=== PATIENT | male | born 1960 | race Caucasian/White ===

== ENCOUNTER 2022-02-24 12:15 | Day surgery (SDC) | payer OTHER ==
[2022-02-24] VITALS (13 sets, daily range): BP systolic 126–154; BP diastolic 59–83; PULSE 58–105; TEMP 97.4–98.6
[~2022-02-24] VITALS: Ht 190.5 cm; Wt 82.2 kg
[2022-02-24] MEDS ORDERED: DITROPAN 5MG TAB5 MG PO (13:19)
[2022-02-24] MEDS ORDERED: COLACE 100100 MG/CAP PO (13:19)
[2022-02-24] MEDS ORDERED: K-DUR20 MEQ PO (13:20)
[2022-02-24] MEDS ORDERED: PERCOCET 325 MG1 TA2 PO (13:20)
[2022-02-24] MEDS ORDERED: MIRALAX238G PO (13:20)
[2022-02-24] MEDS ORDERED: PYRIDIUM200 M1 PO (13:21)
[2022-02-24] MEDS ORDERED: TRILIPIX 135MG PO (13:21)
[2022-02-24] MEDS ORDERED: FLOMAX 0.40.4 MG/CAP PO (13:21)
[2022-02-24] MEDS ORDERED: NIASPAN1000 MG PO (13:22)
[2022-02-24] MEDS ORDERED: GLUCOPHAGE850 MG/TAB PO (13:22)
[2022-02-24] MEDS ORDERED: PRINIVIL10 MG PO (13:23)
[2022-02-24] MEDS ORDERED: STEGLATRO15 MG PO (13:23)
[2022-02-24] MEDS ORDERED: ASPIRIN 81M81 MG/TA2 PO (13:24)
[2022-02-24] MEDS ORDERED: TOPROL XL 25MG25 MG PO (13:24)
[2022-02-24] MEDS ORDERED: ZOCOR 40MG40 MG PO (13:24)
[2022-02-24 14:03] LABS: CREATININE, serum 0.9 mg/dL (0.72-1.25); POTASSIUM 3.7 mmol/L (3.5-4.5)
[2022-02-24] MEDS ORDERED: PYRIDIUM 100MG100 MG PO (14:22)
--- NOTE | 2022-02-24 19:09 | NUR ---
Patient resting in bed. His supportive was at bedside. Patient had complaints of bladder pain, AZO, Levsin,Tyelnol given. Ortega hand irrigated and few clots received. Cbi remains wide open. Fruit punch tinged output. Iv to Int. He has tolerated general diet. Scds ble. Vss on room air. Report to jose a
--- NOTE | 2022-02-24 20:00 | NUR ---
PT IN BED, SCDS ON, PT ASKING TO HAVE THEM REMOVED. INT TO RT WRIST. HAS CBI AT MODERATE RATE, GROSS HEMATURIA NOTED. MATTHEWS CARES DONE, HAS A KARLENE KNOT. PT DRINKING ORAL FLUIDS WELL.
--- NOTE | 2022-02-24 22:25 | NUR ---
TYLENOL AND MELATONIN GIVEN PER PT REQUEST. REPORTS BACK PAIN FROM THE BED.
[2022-02-25] VITALS (10 sets, daily range): BP systolic 101–127; BP diastolic 44–69; PULSE 85–90; TEMP 97.6–98.6
--- NOTE | 2022-02-25 02:28 | NUR ---
URINE LIGHT WATERMELON. PT RESTING WELL AFTER TYLENOL AND MELATONIN.
[2022-02-25 06:31] LABS: BASO # 0.1 K/mm3 (0.0-0.2); BASO % 0.7 % (0.0-2.0); EOS # 0.5 K/mm3 (0.0-0.7); EOS % 4.7 % (0.0-4.0); GRAN # 7.3 K/mm3 (1.4-6.5); GRAN % 75.8 % (42.2-75.2); LYMPH # 1.1 K/mm3 (1.2-3.4); MEAN CELL VOLUME 91 fl (80.0-100.0); MEAN CORPUSCULAR HEMOGLOBIN 30 pg (27-31); MEAN CORPUSCULAR HGB CONC 33 g/dl (33.0-37.0); MEAN PLATELET VOLUME 9.4 fl (7.4-10.4); MONO # 0.7 K/mm3 (0.1-0.6); MONO % 7.5 % (1.7-9.3); PLATELET COUNT 277 K/mm3 (130-400); RED BLOOD COUNT 3.97 M/mm3 (4.20-5.60); REDCELL DISTRIBUTION WIDTH-CV 12.7 % (11.5-14.5)
[2022-02-25 06:44] LABS: HEMATOCRIT 36.2 % (42.0-52.0)
[2022-02-25 06:45] LABS: CALCIUM 8.8 mg/dL (8.4-10.2); CREATININE, serum 0.86 mg/dL (0.72-1.25); POTASSIUM 3.9 mmol/L (3.5-4.5)
--- NOTE | 2022-02-25 08:00 | NUR ---
PATIENT IS A&O AND SITTING UP IN BED WITH BREAKFAST TRAY. VSS. DENIES PAIN OR NAUSEA. RIGHT WRIST IV TO INT. MATTHEWS TO DD WITH MOD AMOUNTS OF RED-TINGED URINE WITH A FEW SMALL TISSUE CLOTS NOTED. AM BS WAS 159, SSI GIVEN WITH AM MEDS. HEAD TO TOE ASSESSMENT COMPLETE. AWAITING UROLOGY TO ROUND. NO OTHER NEEDS AT THIS TIME. CALL LIGHTIN REACH.
--- NOTE | 2022-02-25 10:55 | NUR ---
P&P MATTHEWS PER ORDERS. PATIENT GIVEN 6 CUP VOIDING TRIAL EDUCATION. TOLERATED WELL. URINAL AT BEDSIDE. WILL MONITOR OUTPUT.
--- NOTE | 2022-02-25 13:04 | NUR ---
As[employer] rounds: [employer] visit attempted. Patient declined. [employer] asked if he was going to watch the [employer] game today. Patient stated that he is not normally a sports fan. He is busy doing other things at home. However, since he is here, he will most likely watch the game for something to do.
--- NOTE | 2022-02-25 21:00 | NUR ---
PT MEDICATED WITH HS MEDS INCLUDING TYLENOL FOR BACK PAIN AND MELATONIN FOR SLEEP. INT TO RT WRIST, FLUSHES WELL. VOIDING RED COLORED URINE WITHOUT PROBLEM. WILL MONITOR FOR CHANGES.
[2022-02-26 03:37] VITALS: BP 105/59; PULSE 81; TEMP 97.5
[2022-02-26 03:48] VITALS: PULSE 81; TEMP 97.5
--- NOTE | 2022-02-26 05:50 | NUR ---
PT SHOWERS INDEPENDENTLY. NO CONCERNS VOICED.
[2022-02-26 07:28] VITALS: BP 102/71; PULSE 95; TEMP 98
--- NOTE | 2022-02-26 08:00 | NUR ---
AT BEDSIDE. DISCHARGE CRITERIA MEET, SEE ORDERS.
--- NOTE | 2022-02-26 08:30 | NUR ---
PATIENT IS GETTING DRESSED AND PACKED FOR DISCHARGE. PATIENT REPORTS HE HAS HIS HOME MEDS AND WOULD RATHER TAKE HIS OWN MEDS ON THE WAY HOME. PATIENT HAS DISCHARGE ORDERS AND WILL BE LEAVING SOON.
--- NOTE | 2022-02-26 08:45 | NUR ---
PATIENT DISCHARGING HOME VIA AMBULATORY TO PERSONAL VEHICLE WHERE IS WAITING. GAVE DISCHARGE INSTRUCTIONS, E-SCRIPT SENT, AND DISCUSSED F/U APT. ANSWERED QUESTIONS/CONCERNS. DC'D RIGHT WRIST IV AND COVERED SITE WITH GAUZE & COBAN. PATIENT IS DRESSED, PACKED AND DISCHARGED.
== END 2022-02-26 08:45 | disposition home or self-care (01) ==
LOC: SDCO 12:15 → SURG 16:35 → SDCO 02-26 08:45
PROVIDERS: Physician Assistant; Urology
DX: N40.1 Benign prostatic hyperplasia with lower urinary tract symptoms (principal); N13.8 Other obstructive and reflux uropathy; R39.12 Poor urinary stream; R35.1 Nocturia; R33.9 Retention of urine, unspecified; R39.14 Feeling of incomplete bladder emptying; N41.0 Acute prostatitis; N39.0 Urinary tract infection, site not specified; N12 Tubulo-interstitial nephritis, not specified as acute or chronic; I12.9 Hypertensive chronic kidney disease with stage 1 through stage 4 chronic kidney disease, or unspecified chronic kidney disease; E11.22 Type 2 diabetes mellitus with diabetic chronic kidney disease; N18.9 Chronic kidney disease, unspecified; F17.220 Nicotine dependence, chewing tobacco, uncomplicated; E87.20 Acidosis, unspecified; E78.5 Hyperlipidemia, unspecified; Z79.85 Long-term (current) use of injectable non-insulin antidiabetic drugs; Z79.899 Other long term (current) drug therapy; Z79.84 Long term (current) use of oral hypoglycemic drugs
CPT/HCPCS: OP; A9270; J0690; J1815; J2704; J7120